=== PATIENT | female | born 1970 | race Caucasian/White ===

== ENCOUNTER 2016-10-02 09:11 | Emergency (ER) | payer OTHER ==
[~2016-10-02] VITALS: Ht 165.1 cm; Wt 88.5 kg
[2016-10-02 09:15] VITALS: BP 131/84
--- NOTE | 2016-10-02 09:35 | ED DYSPNEA/ASTHMA COMPLAINT ---
History of Present Illness General Chief Complaint: Dyspnea (COPD, CHF, Other) Stated Complaint: SOB Source: patient, old records Exam Limitations: no limitations Vital Signs & Intake/Output Vital Signs & Intake/Output Vital Signs Date Time Temp Pulse Resp B/P Pulse O2 O2 Flow FiO2 Ox Delivery Rate 10/02 0945 98 10/02 0929 100 Room Air 10/02 0915 97.1 64 18 131/84 100 Room Air Allergies Coded Allergies: Penicillins (FACE SWELLING 10/02/16) Reconcile Medications Cetirizine HCl (Zyrtec) 10 MG TABLET 1 TAB PO DAILY ALLERGIES (Reported) Levothyroxine Sodium 100 MCG TABLET 1 TAB PO DAILY AC THYROID (Reported) Triage Note: PT BROUGHT OVER FROM THE LAB FOR INCREASED SOB. PT ALLERGIC TO ESSENTIAL OILS AND THINKS SHE IS HAVING A REACTION. Triage Nurses Notes Reviewed? yes Onset: Just prior to arrival Duration: minute(s):, constant, continues in ED Timing: recent history Severity: severe Activities at Onset: none Prior Episodes/Possible Cause: allergen exposure Modifying Factors: Improves With: other. Associated Symptoms: cough, wheezing LMP (ages 10-50): unknown : No Patient currently breastfeeds: No HPI: Prior to admission patient was exposed to inhaled allergen developed shortness of breath throat tightening improved with inhalers. She denies fever chills nausea vomiting diarrhea abdominal pain chest pain headache dysuria rash bleeding. Past History Travel History Traveled to [place] past 21 day No Medical History Any Pertinent Medical History? see below for history Respiratory: asthma Endocrine: hypothyroidism Surgical History Surgical History: non-contributory Psychosocial History What is your primary language Panamanian Tobacco Use: Never used ETOH Use: occasional use Illicit Drug Use: denies illicit drug use Family History Hx Contributory? No Review of Systems Review of Systems Constitutional: Reports: no symptoms. EENTM: Reports: see HPI, throat swelling. Respiratory: Reports: see HPI, cough, short of breath, wheezing. Cardiovascular: Reports: no symptoms. GI: Reports: no symptoms. Genitourinary: Reports: no symptoms. Musculoskeletal: Reports: no symptoms. Skin: Reports: no symptoms. Neurological/Psychological: Reports: no symptoms. Hematologic/Endocrine: Reports: no symptoms. Immunologic/Allergic: Reports: no symptoms. All Other Systems: Reviewed and Negative Physical Exam Physical Exam General Appearance: well developed/nourished, alert, awake, anxious, mild distress Head: atraumatic, normal appearance Eyes: Bilateral: normal appearance, PERRL, EOMI. Ears, Nose, Throat: normal ENT inspection, pharyngeal erythema Neck: normal inspection, supple, full range of motion, no midline tenderness Respiratory: normal breath sounds, chest non-tender, no respiratory distress, quiet respiration, lungs clear, decreased breath sounds Cardiovascular: regular rate/rhythm, normal peripheral pulses, norml femoral pulses equa Peripheral Pulses: 4+ carotid (R), 4+ carotid (L) Gastrointestinal: normal bowel sounds, soft, non-tender, no organomegaly Extremities: normal inspection, normal capillary refill, normal range of motion, no edema Neurologic/Psych: no motor/sensory deficits, awake, alert, oriented x 3, normal gait, normal mood/affect Skin: intact, normal color, warm/dry Lymphatic: no anterior cervical natasha Core Measures ACS in differential dx? No Severe Sepsis Present: No Septic Shock Present: No Progress Differential Diagnosis: asthma, bronchitis Plan of Care: Current Medications Sig/Aline Start time Last Medication Dose Stop Time Status Admin Albuterol Sulfate 3 ML ONCE ONE 10/02 929 UNVr (Proventil) 10/02 930 Ipratropium Clifford 2.5 ML ONCE ONE 10/02 929 UNVr (Atrovent) 10/02 930 Initial ED EKG: none Departure Departure Time of Disposition: 933 Disposition: HOME OR SELF CARE Condition: Stable Clinical Impression Primary Impression: Asthma with acute exacerbation in adult Referrals: KIRIT CABELLO MD (PCP/Family) Departure Forms: Customer Survey General Discharge Information RELEASE- WORK Critical Care Note Critical Care Note Critical Care Time: non-applicable
[2016-10-02] MEDS ORDERED: ZYRTEC10 M3 PO (09:54)
[2016-10-02] MEDS ORDERED: LEVOTHYROXINE100 MC1 PO (09:54)
== END 2016-10-02 10:37 ==
LOC: ERH 09:11
DX: J45.901 Unspecified asthma with (acute) exacerbation (principal); Z57.39 Occupational exposure to other air contaminants; Y93.9 Activity, unspecified; Y92.9 Unspecified place or not applicable
CPT/HCPCS: 1263

== ENCOUNTER 2016-11-01 08:14 | Emergency (ER) | payer OTHER ==
[~2016-11-01] VITALS: Ht 165.1 cm; Wt 86.2 kg
[~2016-11-01 08:14] MED LIST: LEVOTHYROXINE100 MC1 PO; ZYRTEC10 M3 PO
[2016-11-01 08:17] VITALS: BP 115/78
--- NOTE | 2016-11-01 08:27 | ED GENERAL ADULT ---
History of Present Illness General Chief Complaint: Allergy Symptoms Stated Complaint: ALLERGIC REACTION? 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 O2 SAT 100 % ON RA AND PT ABLE TO SPEAK IN FULL SENTENCES. DENIES HIVES AND RASH, STATES THAT SHE JUST FEELS LIKE HER THROAT IS CLOSING . Triage Nurses Notes Reviewed? yes Onset: Abrupt Duration: minute(s): (20) Timing: remote history Injury Environment: home Severity: moderate Severity Numbers: 7 Modifying Factors: Improves With: other (albuterol). : No Patient currently breastfeeds: No HPI: Patient is a 46-year-old female presenting to the emergency department with chief complaint of tingling sensation in her throat for approximately 20 minutes after smelling essential oils. History of similar symptoms in the past. She took her albuterol. Afterwards which seemed to help. Denies any chest pain or palpitations. No coughing. Denies wheezing. Denies abdominal pain. No nausea or vomiting. Denies any rash. No fevers or chills. No recent illness. (KAY SIERRA,KONRAD) Reconcile Medications Cetirizine HCl (Zyrtec) 10 MG TABLET 1 TAB PO DAILY ALLERGIES (Reported) Diphenhydramine HCl (Benadryl) 25 MG CAPSULE 1 CAP PO QAM ALLERGIES (Reported ) Levothyroxine Sodium 100 MCG TABLET 1 TAB PO DAILY AC THYROID (Reported) Prednisone 10 MG TABLET 3 TAB PO DAILY allergic reaction (YULISSA VENEGAS,REGINA) Past History Travel History Traveled to [place] past 21 day No Medical History Any Pertinent Medical History? see below for history Neurological: NONE EENT: NONE Cardiovascular: NONE Respiratory: asthma Gastrointestinal: NONE Hepatic: NONE Renal: NONE Musculoskeletal: NONE Psychiatric: NONE Endocrine: hypothyroidism Blood Disorders: NONE Cancer(s): NONE MEMORY CARE PROGRAM DIRECTOR/Reproductive: NONE Surgical History Surgical History: non-contributory Psychosocial History What is your primary language Costa Rican Tobacco Use: Never used ETOH Use: denies use Illicit Drug Use: denies illicit drug use Family History Hx Contributory? No (KONRAD VIVAR) Review of Systems Review of Systems Constitutional: Reports: no symptoms. Comments Review of systems: See HPI, All other systems negative. Constitutional, no chills fever or weight loss HEENT: No visual changes no sore throat no congestion Cardiovascular: No chest pain ,palpitation Skin, no jaundice no rashes Respiratory: No cough sputum or hemoptysis GI: No nausea no vomiting Muscle skeletal: no back pain, no neck pain, Neurologic: No numbness no confusion Psych: No stress anxiety Immunology: No splenectomy or history of AIDS (KONRAD VIVAR) Physical Exam Physical Exam General Appearance: well developed/nourished, no apparent distress, alert, awake , comfortable Comments: Well-developed well-nourished person in no acute distress HEENT:Pupils equally round and reactive to light and accommodation. Nose is atraumatic. External auditory canal and Tympanic membranes clear. Pharynx normal. No swelling or edema. Clearing secretions without difficulty. Neck: Supple, no lymphadenopathy, normal range of motion without pain or tenderness Back: Nontender Cardiovascular: Regular rate and rhythms no murmurs rubs or gallops, normal JVP Respiratory: Chest nontender. No respiratory distress.breath sounds clear to auscultation bilaterally Extremity: No edema Neuro: Alert oriented x3 Skin: No appreciable rash on exposed skin, skin is warm and dry. Psych: Mood and affect is normal, memory and judgment is normal. Core Measures ACS in differential dx? No CVA/TIA Diagnosis: No Severe Sepsis Present: No Septic Shock Present: No (KONRAD VIVAR) Progress Differential Diagnoses I considered the following diagnoses in my evaluation of the patient: Allergic reaction, panic attack, sensitivity reaction Plan of Care: Patient medicated with breathing treatment and prednisone. We will reassess afterwards. Initial ED EKG: none Comments: Patient feeling much better after breathing treatment. She'll be discharged with prednisone for the next couple days. She'll follow with PCP. Advised to avoid essential oils. (KONRAD VIVAR) Departure Departure Time of Disposition: 843 Disposition: HOME OR SELF CARE Condition: Stable Clinical Impression Primary Impression: Allergic reaction Qualifiers: Encounter type: initial encounter Qualified Code: T78.40XA - Allergy, unspecified, initial encounter Referrals: IRINEO VENEGAS,KIRIT (PCP/Family) Additional Instructions: Follow-up with your primary care physician calling appointment. Continue using albuterol inhaler as previously directed. Take Benadryl [id number] as directed. Return for worsening symptoms or concerns. Departure Forms: Customer Survey General Discharge Information Prescriptions: Current Visit Scripts Prednisone 3 TAB PO DAILY #9 TAB (KONRAD VIVAR) PA/SALES COUNSELOR Co-Sign Statement Statement: ED Attending supervision documentation- [] I saw and evaluated the patient. I have also reviewed all the pertinent lab results and diagnostic results. I agree with the findings and the plan of care as documented in the PA's/SALES COUNSELOR's documentation. [X] I have reviewed the ED Record and agree with the PA's/SALES COUNSELOR's documentation. [] Additions or exceptions (if any) to the PAs/SALES COUNSELOR's note and plan are summarized below: [] (YULISSA VENEGAS,REGINA) Critical Care Note Critical Care Note Critical Care Time: non-applicable (KONRAD VIVAR)
[2016-11-01] MEDS ORDERED: BENADRYL25 MG PO (08:33)
[2016-11-01] MEDS ORDERED: PREDNISONE10 M2 PO (08:50)
== END 2016-11-01 08:58 ==
LOC: ERH 08:14
DX: T78.40XA Allergy, unspecified, initial encounter (principal)
CPT/HCPCS: 1263

== ENCOUNTER 2016-11-20 10:07 | Emergency (ER) | payer OTHER ==
[~2016-11-20] VITALS: Ht 165.1 cm; Wt 86.2 kg
[~2016-11-20 10:07] MED LIST changes: +BENADRYL25 MG PO; +PREDNISONE10 M2 PO
--- NOTE | 2016-11-20 10:55 | ED UPPER/LOWER EXTREMITY COMPL ---
History of Present Illness General Chief Complaint: Lower Extremity Injury Stated Complaint: RT KNEE PAIN S/P FALL YESTERDAY Source: patient Exam Limitations: no limitations Vital Signs & Intake/Output Vital Signs & Intake/Output Vital Signs Date Time Temp Pulse Resp B/P B/P Pulse O2 O2 Flow FiO2 Mean Ox Delivery Rate 11/20 1141 98.0 70 20 120/80 99 Room Air 11/20 1014 97.5 72 18 116/74 99 Room Air Allergies Coded Allergies: Penicillins (FACE SWELLING 10/02/16) Reconcile Medications Cetirizine HCl (Zyrtec) 10 MG TABLET 1 TAB PO DAILY ALLERGIES (Reported) Ibuprofen 800 MG TABLET 1 TAB PO TID pain Levothyroxine Sodium 100 MCG TABLET 1 TAB PO DAILY AC THYROID (Reported) Triage Note: 46 Y/O FEMALE C/O R KNEE PAIN/SWELLING S/P FALL YESTERDAY. STATES SHE WOKE WITH SWELLING TO KNEE AND WANTED TO GET EVALUATED. AMBULATORY WITH STEADY GAIT INTO TRIAGE. PT TOOK 800 MG IBUPROPHEN AT 0400 WITH NO CHANGE IN SYMPTOMS. WORKMANS COMP COMPLETED IN TRIAGE. Triage Nurses Notes Reviewed? yes Onset: Abrupt Duration: day(s): (1), constant, continues in ED Timing: recent history Severity: moderate, severe Pain/Injury Location: Right: Knee. Method of Injury: fall No Modifying Factors: none : No Patient currently breastfeeds: No HPI: 46-year-old female comes into emergency room for further evaluation of right knee pain. Patient reports that yesterday while she was at work here at [facility] [employer] she slipped in the lab and fell forward onto her right knee. Some swelling. Sharp throbbing pain. Patient comes in today to get evaluated since symptoms have improved. Denies any trauma anywhere else on her body. Denies any other associated symptoms. (PRIYANKA RAMOS) Past History Travel History Traveled to [place] past 21 day No Medical History Any Pertinent Medical History? see below for history Neurological: NONE EENT: NONE Cardiovascular: NONE Respiratory: asthma Gastrointestinal: NONE Hepatic: NONE Renal: NONE Musculoskeletal: NONE Psychiatric: NONE Endocrine: hypothyroidism Blood Disorders: NONE Cancer(s): NONE EQUAL OPPORTUNITY REPRESENTATIVE/Reproductive: NONE Surgical History Surgical History: non-contributory Psychosocial History What is your primary language Turkmen Tobacco Use: Never used Family History Hx Contributory? No (PRIYANKA RAMOS) Review of Systems Review of Systems Constitutional: Reports: no symptoms. EENTM: Reports: no symptoms. Respiratory: Reports: no symptoms. Cardiovascular: Reports: no symptoms. Gastrointestinal/Abdominal: Reports: no symptoms. Genitourinary: Reports: no symptoms. Musculoskeletal: Reports: see HPI. Skin: Reports: no symptoms. Neurological/Psychological: Reports: no symptoms. Hematologic/Endocrine: Reports: no symptoms. Immunological: Reports: no symptoms. All Other Systems: Reviewed and Negative (PRIYANKA RAMOS) Physical Exam Physical Exam General Appearance: well developed/nourished, mild distress Head: atraumatic Eyes: Bilateral: normal appearance. Ears, Nose, Throat: normal ENT inspection, hearing grossly normal Neck: normal inspection Cardiovascular/Respiratory: no respiratory distress Back: normal inspection Knee Right: joint effusion, soft tissue tenderness, limited range of motion Neurologic/Tendon: normal sensation, normal motor functions, normal tendon functions, responds to pain, no evidence tendon injury, no pulse deficit Skin: intact, normal color, warm/dry Lymphatic: no anterior cervical natasha (PRIYANKA RAMOS) Progress Differential Diagnosis: contusion, dislocation, fracture, gout, septic arthritis , sprain, tendon injury Plan of Care: Orders Procedure Date/time Status XRY-KNEE COMPLETE RIGHT 11/20 1028 Active Diagnostic Imaging: Viewed by Me: Radiology Read. Discussed w/RAD: Radiology Read. Radiology Impression: SERVICE DATE: 11/20/16 EXAM TYPE: RAD - XRY-KNEE COMPLETE RIGHT EXAMINATION: RIGHT KNEE 3 VIEWS CLINICAL INFORMATION: Right knee pain after fall. COMPARISON: None. TECHNIQUE: AP, lateral, oblique views of the right knee were obtained. FINDINGS: There are no fractures or dislocations. There is no knee joint effusion. There is no significant soft tissue swelling. IMPRESSION: Unremarkable right knee radiographs. DICTATED BY: MARCO ANTONIO GIBSON MD DATE/TIME DICTATED:11/20/161113 COMMISSIONS SPECIALIST:SOFI DATE/TIME TRANSCRIBED:11/20/161113 (PRIYANKA RAMOS) Departure Departure Disposition: HOME OR SELF CARE Condition: Stable Clinical Impression Primary Impression: Right knee sprain Referrals: CONCEPCION VENEGAS,BRIANNA CABELLO MD,KIRIT (PCP/Family) Additional Instructions: Ice. Rest. Motrin for pain. Elevation. Follow-up with orthopedic doctor provided if not better in 3-5 days. If symptoms do not improve you'll require further evaluation with possible repeat x-rays as well as evaluation by university extension specialist. Sprains can last anywhere from days to weeks. No high impact running or jumping if you have an ankle sprain or any type of lower extremity sprain. Return to normal activity only after symptoms have resolved. Please go over all results of today's visit with your primary care doctor. Contact your primary care doctor to let them know you were here in the emergency room. There may be nonspecific findings which may not be related to your visit today here in the emergency room but may require further evaluation and chronic monitoring by your primary care doctor. If you had a laceration today the chance of foreign body always remains. You should follow-up with your primary care doctor for recheck in 3-5 days for a wound check. If you had an x-ray done there is a chance that a fracture could have been missed on initial read and you should follow-up with your primary care doctor for repeat x-rays if symptoms persist. If your blood pressure was elevated here in the emergency room please have rechecked by her primary care doctor within the next 48 hours by your primary care doctor. If you were prescribed a narcotic here in the emergency room or any type of controlled substances you're not allowed to drive while taking this medication or operate any type of heavy machinery. Narcotics can make you feel lightheaded dizziness nausea and can cause constipation. You may need to scrap picker a stool softener. Thank you for choosing [facility] emergency room. Please return to the emergency room immediately if you have any other concerns worsening of symptoms. Departure Forms: Customer Survey [facility] General Discharge Information Prescriptions: Current Visit Scripts Ibuprofen 1 TAB PO TID #30 TAB Comments 11/20/2016 11:23:22 AM Patient clinically looks well. Nontoxic-appearing. No evidence of fracture. Follow-up with orthopedic if not better in 3-5 days as well as occupational medicine. Ice. Rest. At this time you have declined knee immobilizer. Use compression wrap. Weightbearing as tolerated. (PRIYANKA RAMOS) PA/BANK NOTE DESIGNER Co-Sign Statement Statement: ED Attending supervision documentation- I saw and evaluated the patient. I have also reviewed all the pertinent lab results and diagnostic results. I agree with the findings and the plan of care as documented in the PA's/BANK NOTE DESIGNER's documentation. x I have reviewed the ED Record and agree with the PA's/BANK NOTE DESIGNER's documentation. [] Additions or exceptions (if any) to the PAs/BANK NOTE DESIGNER's note and plan are summarized below: [] (MODESTA VENEGAS,ADAMS)
--- NOTE | 2016-11-20 11:18 | RADIOLOGY REPORT ---
EXAMINATION: RIGHT KNEE 3 VIEWS CLINICAL INFORMATION: Right knee pain after fall. COMPARISON: None. TECHNIQUE: AP, lateral, oblique views of the right knee were obtained. FINDINGS: There are no fractures or dislocations. There is no knee joint effusion. There is no significant soft tissue swelling. IMPRESSION: Unremarkable right knee radiographs.
[2016-11-20] MEDS ORDERED: IBUPROFEN800 M1 PO ×2 (11:20)
[2016-11-20 11:41] VITALS: BP 120/80
== END 2016-11-20 11:41 ==
LOC: ERH 10:07
DX: S83.91XA Sprain of unspecified site of right knee, initial encounter (principal); W01.0XXA Fall on same level from slipping, tripping and stumbling without subsequent striking against object, initial encounter; Y92.238 Other place in hospital as the place of occurrence of the external cause; Y93.9 Activity, unspecified
CPT/HCPCS: 73562-RT